=== PATIENT | male | born 1990 | race Two or more races ===

== ENCOUNTER 2019-12-21 11:27 | Emergency (ER) | payer OTHER ==
[~2019-12-21] VITALS: Ht 167.6 cm; Wt 99.8 kg
[2019-12-21 13:45] VITALS: BP 142/99
== END 2019-12-21 13:46 | disposition home or self-care (01) ==
LOC: ER 11:27
DX: J06.9 Acute upper respiratory infection, unspecified (principal); Z20.828 Contact with and (suspected) exposure to other viral communicable diseases
CPT/HCPCS: 99284; 0099U; 71045; 87804; 36415